=== PATIENT | male | born 1990 | race Hispanic/Latino ===

== ENCOUNTER 2018-11-15 11:44 | Emergency (ER) | payer SELFPAY ==
--- NOTE | 2018-11-15 13:33 | EDPHYS ---
Physician Documentation [facility] Name: Dionicio Bonilla Age: 28 yrs Sex: Male : 1990 Arrival Date: 11/15/2018 Time: 11:48 Bed 12 Private MD: None, None ED Physician David Núñez HPI: 11/15 13:32 This 28 yrs old Male presents to ER via Ambulatory with complaints of Flu pm1 Symptoms. 13:32 The patient presents with sore throat. The patient describes throat pain as constant, pm1 scratchy. Onset: The symptoms/episode began/occurred yesterday. Severity of symptoms: in the emergency department the symptoms are unchanged. Modifying factors: The symptoms are alleviated by nothing, the symptoms are aggravated by swallowing, Patient's oral intake status: good The patient has had contact with sick spouse, positive strep. Associated signs and symptoms: Pertinent positives: fever, flu-like symptoms, Pertinent negatives chest pain, cough, diarrhea, shortness of breath, vomiting. The patient has not experienced similar symptoms in the past. The patient has not recently seen a physician. Historical: - Allergies: 11:57 No Known Allergies; aa5 - PMHx: 11:57 None; aa5 - PSHx: 11:57 None; aa5 - Immunization history:: Flu vaccine is not up to date. - Social history:: Smoking status: Patient uses tobacco products, smokes one-half pack cigarettes per day. - Ebola Screening: : No symptoms or risks identified at this time. ROS: 13:32 Eyes: Negative for injury, pain, redness, and discharge. pm1 13:32 Neck: Negative for injury, pain, and swelling, Cardiovascular: Negative for chest pain, palpitations, and edema, Respiratory: Negative for shortness of breath, cough, wheezing, and pleuritic chest pain, Abdomen/GI: Negative for abdominal pain, nausea, vomiting, diarrhea, and constipation, Back: Negative for injury and pain, MS/Extremity: Negative for injury and deformity, Skin: Negative for injury, rash, and discoloration, Neuro: Negative for headache, weakness, numbness, tingling, and seizure. 13:32 Constitutional: Positive for fever, Negative for poor PO intake. 13:32 ENT: Positive for sore throat, Negative for drainage from ear(s), ear pain. Exam: 13:32 Constitutional: This is a well developed, well nourished patient who is awake, alert, pm1 and in no acute distress. Head/Face: Normocephalic, atraumatic. Eyes: Pupils equal round and reactive to light, extra-ocular motions intact. Lids and lashes normal. Conjunctiva and sclera are non-icteric and not injected. Cornea within normal limits. Periorbital areas with no swelling, redness, or edema. ENT: Nares patent. No nasal discharge, no septal abnormalities noted. Tympanic membranes are normal and external auditory canals are clear. Oropharynx with no redness, swelling, or masses, exudates, or evidence of obstruction, uvula midline. Mucous membranes moist. Neck: Trachea midline, no thyromegaly or masses palpated, and no cervical lymphadenopathy. Supple, full range of motion without nuchal rigidity, or vertebral point tenderness. No Meningismus. Chest/axilla: Normal chest wall appearance and motion. Nontender with no deformity. No lesions are appreciated. Cardiovascular: Regular rate and rhythm with a normal S1 and S2. No gallops, murmurs, or rubs. Normal PMI, no JVD. No pulse deficits. Respiratory: Lungs have equal breath sounds bilaterally, clear to auscultation and percussion. No rales, rhonchi or wheezes noted. No increased work of breathing, no retractions or nasal flaring. Abdomen/GI: Soft, non-tender, with normal bowel sounds. No distension or tympany. No guarding or rebound. No evidence of tenderness throughout. Back: No spinal tenderness. No costovertebral tenderness. Full range of motion. Skin: Warm, dry with normal turgor. Normal color with no rashes, no lesions, and no evidence of cellulitis. MS/ Extremity: Pulses equal, no cyanosis. Neurovascular intact. Full, normal range of motion. 13:32 Neuro: Orientation: is normal, Motor: is normal, moves all fours. Vital Signs: 11:57 BP 115 / 63; Pulse 77; Resp 18 S; Temp 97.9(TE); Pulse Ox 96% on R/A; Weight 106.59 kg; aa5 Height 5 ft. 9 in. (175.26 cm) (R); Pain 0/10; 11:57 Body Mass Index 34.70 (106.59 kg, 175.26 cm) aa5 MDM: 12:07 Patient medically screened. pm1 13:32 Data reviewed: vital signs. Data interpreted: Pulse oximetry: on room air is 96 %. pm1 Interpretation: normal. Counseling: I had a detailed discussion with the patient and/or guardian regarding: the historical points, exam findings, and any diagnostic results supporting the discharge/admit diagnosis, lab results, the need for outpatient follow up, to return to the emergency department if symptoms worsen or persist or if there are any questions or concerns that arise at home. 11/15 12:18 Order name: Flu; Complete Time: 13:21 pm1 11/15 13:32 Order name: Strep pm1 Administered Medications: No medications were administered Disposition: 14:15 Co-signature as Attending Physician, David Núñez MD I agree with the assessment and [facility] plan of care. Disposition: 11/15/18 13:33 Discharged to Home. Impression: Acute pharyngitis. - Condition is Stable. - Discharge Instructions: Pharyngitis. - Prescriptions for Amoxicillin 500 mg Oral Capsule - take 1 capsule by ORAL route every 8 hours for 10 days; 30 tablet. - Work release form, Medication Reconciliation Form, Thank You Letter, Antibiotic Education form. - Follow up: Emergency Department; When: As needed; Reason: Worsening of condition. Follow up: Private Physician; When: 2 - 3 days; Reason: Recheck today's complaints, Continuance of care, Re-evaluation by your physician. - Problem is new. - Symptoms have improved. Signatures: Dispatcher [employer] David Salazar MD MD cha Williams, Irene, RN RN Alice Childs RN RN aa5 Roger Johnson NP CRNA pm1 Corrections: (The following items were deleted from the chart) 13:50 13:33 11/15/2018 13:33 Discharged to Home. Impression: Acute pharyngitis. Condition is iw Stable. Forms are Medication Reconciliation Form, Thank You Letter, Antibiotic Education, Prescription Opioid Use. Follow up: Emergency Department; When: As needed; Reason: Worsening of condition. Follow up: Private Physician; When: 2 - 3 days; Reason: Recheck today's complaints, Continuance of care, Re-evaluation by your physician. Problem is new. Symptoms have improved. pm1
--- NOTE | 2018-11-15 13:33 | ER ---
Nurse's Notes [facility] Name: Dionicio Bonilla Age: 28 yrs Sex: Male : 1990 Arrival Date: 11/15/2018 Time: 11:48 Bed 12 Private MD: None, None Diagnosis: Acute pharyngitis Presentation: 11/15 11:56 Presenting complaint: Patient states: cough and congestion since yesterday. Pt states aa5 "my chest hurts when I take a deep breath in and when I cough". Denies sore throat. Transition of care: patient was not received from another setting of care. Onset of symptoms was October 2018. Risk Assessment: Do you want to hurt yourself or someone else? Patient reports no desire to harm self or others. Initial Sepsis Screen: Does the patient meet any 2 criteria? No. Patient's initial sepsis screen is negative. Does the patient have a suspected source of infection? No. Patient's initial sepsis screen is negative. Care prior to arrival: None. 11:56 Method Of Arrival: Ambulatory aa5 11:56 Acuity: JUAN DANIEL 4 aa5 Historical: - Allergies: 11:57 No Known Allergies; aa5 - PMHx: 11:57 None; aa5 - PSHx: 11:57 None; aa5 - Immunization history:: Flu vaccine is not up to date. - Social history:: Smoking status: Patient uses tobacco products, smokes one-half pack cigarettes per day. - Ebola Screening: : No symptoms or risks identified at this time. Screenin:54 Abuse screen: Denies threats or abuse. Denies injuries from another. Nutritional iw screening: No deficits noted. Tuberculosis screening: No symptoms or risk factors identified. Fall Risk None identified. Assessment: 12:53 General: Appears in no apparent distress. comfortable, Behavior is calm, cooperative. iw Pain: Denies pain. Neuro: Level of Consciousness is awake, alert, obeys commands, Oriented to person, place, time, situation, Moves all extremities. Full function. Cardiovascular: Patient's skin is warm and dry. Respiratory: Reports cough that is Airway is patent Respiratory effort is even, unlabored. Derm: Skin is intact, is healthy with good turgor. Musculoskeletal: Range of motion: intact in all extremities. Vital Signs: 11:57 BP 115 / 63; Pulse 77; Resp 18 S; Temp 97.9(TE); Pulse Ox 96% on R/A; Weight 106.59 kg; aa5 Height 5 ft. 9 in. (175.26 cm) (R); Pain 0/10; 11:57 Body Mass Index 34.70 (106.59 kg, 175.26 cm) aa5 ED Course: 11:48 Patient arrived in ED. mr 11:48 None, None is Private Physician. mr 11:56 Arm band placed on. aa5 11:57 Triage completed. aa5 12:07 Roger Johnson NP is PHCP. pm1 12:07 David Núñez MD is Attending Physician. pm1 12:54 No provider procedures requiring assistance completed. Patient did not have IV access iw during this emergency room visit. 12:55 Patient has correct armband on for positive identification. iw 13:48 Strep swab sent to lab. 3 13:50 Hayley Webber, RN is Primary Nurse. iw Administered Medications: No medications were administered Outcome: 13:33 Discharge ordered by MD. pm1 13:46 Discharged to home ambulatory, with family. iw 13:46 Condition: good 13:46 Discharge instructions given to patient, Instructed on discharge instructions, follow up and referral plans. medication usage, Demonstrated understanding of instructions, follow-up care, medications, Prescriptions given X 1. 13:50 Patient left the ED. iw Signatures: Taylor Gonzalez mr Hayley Webber RN RN Alice Childs RN RN [facility] Roger Johnson NP TECHNICAL MAINTENANCE TECHNICIAN pm1 Magdalena Dumont [facility] Corrections: (The following items were deleted from the chart) 14:08 11:57 Alice Childs RN is Primary Nurse. [place] [id number] 14:08 13:50 Primary Nurse role handed off by Alice Childs RN [facility]
[2018-11-15 13:56] VITALS: BP 115/63; TEMP 97.9; O2SAT 96
== END 2018-11-15 13:50 | disposition home or self-care (01) ==
LOC: ER 11:44
DX: J02.9 Acute pharyngitis, unspecified (principal); F17.210 Nicotine dependence, cigarettes, uncomplicated
CPT/HCPCS: 87070; 87081; 87804; 99283

== ENCOUNTER 2021-05-26 12:42 | Emergency (ER) | payer SELFPAY ==
[2021-05-26 14:23] LABS: SARS-COV-2 RT PCR NEGATIVE (NEGATIVE)
--- NOTE | 2021-05-26 16:10 | EDPHYS ---
Physician Documentation [facility] Name: Dionicio Bonilla Age: 31 yrs Sex: Male : 1990 Arrival Date: 05/26/2021 Time: 12:59 Bed DX3 Private MD: ED Physician Heavenly Hale HPI: 05/26 16:04 This 31 yrs old Male presents to ER via Ambulatory with complaints of R/O cp COVID. 16:04 The patient or guardian reports cough, that is intermittent, flu symptoms, low-grade cp fever, myalgias, fatigue. Onset: The symptoms/episode began/occurred yesterday. Associated signs and symptoms: Pertinent negatives: chest pain, diarrhea, nausea, sore throat, vomiting. 16:04 Patient reports close contact with someone who recently tested positive for COVID-19. cp Patient reports he is not vaccinated against COVID-19 virus. Historical: - Allergies: 13:20 No Known Allergies; aa5 - PMHx: 13:20 None; aa5 - PSHx: 13:20 Cholecystectomy; aa5 - Immunization history:: Client reports having NOT received the Covid vaccine. - Social history:: Smoking status: Patient reports the use of cigarette tobacco products, 2-3 cigarettes a day . ROS: 16:05 Eyes: Negative for injury, pain, redness, and discharge. cp 16:05 Constitutional: Positive for body aches, fatigue, Negative for fever, poor PO intake. 16:05 ENT: Negative for drainage from ear(s), ear pain, sore throat, difficulty swallowing, difficulty handling secretions. 16:05 Cardiovascular: Negative for chest pain. 16:05 Respiratory: Positive for cough, with no reported sputum, Negative for shortness of breath, wheezing. 16:05 Abdomen/GI: Negative for abdominal pain, nausea, vomiting, and diarrhea. 16:05 Neuro: Negative for altered mental status, headache. 16:05 All other systems are negative. Exam: 16:06 Head/Face: Normocephalic, atraumatic. cp 16:06 Constitutional: The patient appears in no acute distress, alert, awake, non-toxic, well developed, well nourished, obese. 16:06 Eyes: Periorbital structures: appear normal, Conjunctiva: normal, no exudate, no injection, Sclera: no appreciated abnormality, Lids and lashes: appear normal, bilaterally. 16:06 ENT: External ear(s): are unremarkable, Nose: is normal, Posterior pharynx: Airway: no evidence of obstruction, patent. 16:06 Neck: Lymph nodes: no appreciated lymphadenopathy. 16:06 Chest/axilla: Inspection: normal. 16:06 Cardiovascular: Rate: normal. 16:06 Respiratory: the patient does not display signs of respiratory distress, Respirations: normal, no use of accessory muscles, no retractions, labored breathing, is not present, Breath sounds: are clear throughout, no decreased breath sounds, no stridor, no wheezing. 16:06 Abdomen/GI: Exam negative for discomfort, distension, guarding, Inspection: abdomen appears normal. Vital Signs: 13:18 BP 111 / 69; Pulse 72; Resp 18 S; Temp 97.2(TE); Pulse Ox 99% on R/A; Weight 117.93 kg aa5 (R); Height 5 ft. 9 in. (175.26 cm) (R); 13:18 Body Mass Index 38.39 (117.93 kg, 175.26 cm) aa5 MDM: 15:58 Patient medically screened. cp 16:07 Differential diagnosis: bronchitis, flu, URI, pneumonia, influenza. Antibiotic cp administration: Not indicated, the patient has a suspected viral illness. Data reviewed: vital signs, nurses notes, lab test result(s), and as a result, I will discharge patient. Counseling: I had a detailed discussion with the patient and/or guardian regarding: the historical points, exam findings, and any diagnostic results supporting the discharge/admit diagnosis, lab results, to return to the emergency department if symptoms worsen or persist or if there are any questions or concerns that arise at home. 05/26 13:20 Order name: COVID-19 : Document "Date of Symptom Onset" if Symptomatic. 05/26 13:20 Order name: Flu [facility] 05/26 15:46 Order name: COVID-19/FLU A+B; Complete Time: 16:00 EDMS Administered Medications: No medications were administered Disposition Summary: 05/26/21 16:10 Discharge Ordered Location: Home cp Problem: new cp Symptoms: are unchanged cp Condition: Stable cp Diagnosis - Acute upper respiratory infection, unspecified cp Followup: cp - With: Private Physician - When: 2 - 3 days - Reason: Worsening of condition Discharge Instructions: - Discharge Summary Sheet cp - Viral Respiratory Infection cp - Form - Excuse from Work, School, or Physical Activity cp Forms: - Medication Reconciliation Form cp - Thank You Letter cp - Antibiotic Education cp - Prescription Opioid Use cp Prescriptions: - Tessalon Perles 100 mg Oral Capsule - take 2 capsule by ORAL route every 8 hours As needed; 30 capsule; Refills: 0, cp Product Selection Permitted Addendum: 05/28/2021 08:53 Co-signature as Attending Physician, Heavenly Hale MD I agree with the assessment and s p3 plan of care. Signatures: Dispatcher [employer] EDAlice Gongora RN RN aa5 David Beal PA PA cp Heavenly Hale MD MD sp3 Corrections: (The following items were deleted from the chart) 05/26 13:20 13:20 PSHx: None; aa5 aa5
--- NOTE | 2021-05-26 16:10 | ER ---
Nurse's Notes [facility] Name: Dionicio Bonilla Age: 31 yrs Sex: Male : 1990 Arrival Date: 05/26/2021 Time: 12:59 Bed DX3 Private MD: Diagnosis: Acute upper respiratory infection, unspecified Presentation: 05/26 13:18 Chief complaint: Patient states: "I think I have COVID". pt c/o cough and fever that aa5 began yesterday and c/o fatigue. Coronavirus screen: cough unrelated to allergies, fatigue, fever. Ebola Screen: Patient denies exposure to infectious person. Initial Sepsis Screen: Does the patient meet any 2 criteria? No. Patient's initial sepsis screen is negative. Does the patient have a suspected source of infection? No. Patient's initial sepsis screen is negative. Risk Assessment: Do you want to hurt yourself or someone else? Patient reports no desire to harm self or others. Onset of symptoms was May 2021. 13:18 Method Of Arrival: Ambulatory aa5 13:18 Acuity: JUAN DANIEL 4 aa5 Historical: - Allergies: 13:20 No Known Allergies; aa5 - PMHx: 13:20 None; aa5 - PSHx: 13:20 Cholecystectomy; aa5 - Immunization history:: Client reports having NOT received the Covid vaccine. - Social history:: Smoking status: Patient reports the use of cigarette tobacco products, 2-3 cigarettes a day . Vital Signs: 13:18 BP 111 / 69; Pulse 72; Resp 18 S; Temp 97.2(TE); Pulse Ox 99% on R/A; Weight 117.93 kg aa5 (R); Height 5 ft. 9 in. (175.26 cm) (R); 13:18 Body Mass Index 38.39 (117.93 kg, 175.26 cm) aa5 ED Course: 12:59 Patient arrived in ED. aa5 13:19 Triage completed. aa5 13:19 Arm band placed on. aa5 15:16 David Beal PA is PHCP. cp 15:16 Heavenly Hale MD is Attending Physician. cp 16:23 Hayley Webber, RN is Primary Nurse. iw Administered Medications: No medications were administered Outcome: 16:10 Discharge ordered by . cp 16:23 Patient left the ED. iw Signatures: Hayley Webber RN RN iw Alice Childs RN RN aa5 David Beal PA PA cp Corrections: (The following items were deleted from the chart) 13:20 13:20 PSHx: None; aa5 aa5 13:22 13:18 BP 111 / 69; Pulse 72bpm; Resp 18bpm; Spontaneous; Pulse Ox 99% RA; 117.93 kg aa5 Reported; Height 5 ft. 9 in. Reported; BMI: 38.3; aa5
[2021-05-26 18:58] VITALS: BP 111/69; TEMP 97.2; O2SAT 99
== END 2021-05-26 16:23 | disposition home or self-care (01) ==
LOC: ER 12:42
DX: J06.9 Acute upper respiratory infection, unspecified (principal); Z20.822 Contact with and (suspected) exposure to COVID-19; Z72.0 Tobacco use
CPT/HCPCS: 0240U; 99281